=== PATIENT | male | born 1965 | race Caucasian/White ===

== ENCOUNTER 2016-12-30 09:06 | Emergency (ER) | payer MEDICAID ==
[~2016-12-30] VITALS: Ht 181.6 cm; Wt 121.3 kg
[2016-12-30 09:15] VITALS: BP 140/91
--- NOTE | 2016-12-30 11:00 | NUR ---
Pt ambulated to bed 5.
--- NOTE | 2016-12-30 11:01 | NUR ---
Patient being evaluated by physician at bedside.
--- NOTE | 2016-12-30 11:02 | NUR ---
51/M BIB FAMILY C/O LEFT FOOT PAIN X 2 MONTHS; PT DENIES TRAUMA OR INJURY TO FOOT; THINKS MAY BE BECAUSE OF PT'S SHOE; SMALL OPEN WOUND NOTED TO LOWER SOLE OF FOOT; NO DRAINAGE OR ACTIVE BLEEDING AT THIS TIME. HX: PT DENIES. AAOX4 WITH EVEN AND UNSTEADY GAIT; LUNGS CLEAR BL; HR EVEN AND REGULAR; PT DENIES ANY FEVER, CP, SOB, OR COUGH AT THIS TIME; PATIENT STATES PAIN OF 5/10 AT THIS TIME; VSS; PATIENT POSITIONED FOR COMFORT; HOB ELEVATED; BEDRAILS UP X2; BED DOWN. ER MD MADE AWARE OF PT STATUS.
--- NOTE | 2016-12-30 11:03 | NUR ---
ER MD DR TRACY EVALUATING PT AT BEDSIDE
--- NOTE | 2016-12-30 11:11 | NUR ---
WOUND CARE TO L FOOT DONE BY HOLGER CHRISTIANS[facility]. PT TOLERATED PROCEDURE WELL.
--- NOTE | 2016-12-30 11:18 | NUR ---
LAB AT BEDSIDE. Addendum: 12/30/16 at 1126 by [facility] AT BEDSIDE.
[2016-12-30 11:38] LABS: BASOPHILS # (AUTO) 0.4 K/uL (0.00-0.22); BASOPHILS % (AUTO) 4.5 % (0.0-2.0); EOSINOPHILS # (AUTO) 0.1 K/uL (0-0.4); HEMATOCRIT 47.8 % (36-52); HEMOGLOBIN 15.2 g/dL (12.0-18.0); LYMPHOCYTES # (AUTO) 2.5 K/uL (2.0-11.5); LYMPHOCYTES % (AUTO) 30.8 % (20.5-51.1); MEAN CORPUSCULAR HEMOGLOBIN 27 pg (27-31); MEAN CORPUSCULAR HGB CONC 32 g/dL (33-37); MEAN CORPUSCULAR VOLUME 84 fL (80-94); MONOCYTES # (AUTO) 0.7 K/uL (0.8-1.0); MONOCYTES % (AUTO) 8.3 % (1.7-9.3); NEUTROPHILS # (AUTO) 4.3 K/uL (1.8-7.7); NEUTROPHILS % (AUTO) 55.4 % (42.2-75.2); PLATELET COUNT (AUTO) 250 K/uL (140-450); RED BLOOD CELL COUNT(AUTO) 5.66 MIL/uL (4.20-6.10); RED CELL DISTRIBUTION WIDTH 12.5 % (11.6-13.7)
[2016-12-30 11:48] LABS: ALBUMIN 3.6 g/dL (3.4-5.0); CALCIUM 8.1 mg/dL (8.5-10.1); CARBON DIOXIDE 26.2 mmol/L (21-32); CREATININE 0.7 mg/dL (0.7-1.3); TOTAL BILIRUBIN 0.9 mg/dL (0.0-1.0); TOTAL PROTEIN, SERUM 7.4 g/dL (6.4-8.2)
[2016-12-30 12:01] LABS: ANION GAP 12.8 (8-16)
[2016-12-30 12:19] VITALS: BP 134/90
--- NOTE | 2016-12-30 12:19 | NUR ---
Patient discharged with v/s stable. Written and verbal after care instructions given and explained. Patient alert, oriented and verbalized understanding of instructions. Ambulatory with steady gait. All questions addressed prior to discharge. ID band removed. Patient advised to follow up with PMD. Rx of KEFLEX & TYLENOL given. Patient educated on indication of medication including possible reaction and side effects. Opportunity to ask questions provided and answered.
== END 2016-12-30 12:19 | disposition home or self-care (01) ==
LOC: MED 09:06
DX: L97.429 Non-pressure chronic ulcer of left heel and midfoot with unspecified severity (principal)
CPT/HCPCS: 36415; 80053; 85025; 99284